=== PATIENT | male | born 1990 | race African-American/Black ===

== ENCOUNTER 2019-12-28 06:21 | Emergency (ER) | payer SELFPAY ==
[~2019-12-28] VITALS: Ht 175.3 cm; Wt 86.3 kg
[2019-12-28] MEDS ORDERED: IV NORMAL SALINE 1000ML BAG 1,000 ML IV ONE (07:15)
[2019-12-28] MEDS ORDERED: KETOROLAC 30 MG/ML VIAL. IVP ONE (07:15)
[2019-12-28] MEDS ORDERED: ONDANSETRON PF 4 MG/2 ML VIAL. IVP ONE (07:15)
[2019-12-28 07:18] LABS: BASO % 1 % (0-3); EOS # 0.4 x10^3/uL (0.0-0.7); EOS % 5 % (0-3); HEMATOCRIT 43.9 % (39.0-53.0); HEMOGLOBIN 14.7 g/dL (13.0-17.5); LYMPH # 1.9 x10^3/uL (1.0-4.8); LYMPH % 27 % (24-48); MEAN CORPUSCULAR HEMOGLOBIN 28 pg (25-35); MEAN CORPUSCULAR HGB CONC 34 g/dL (31-37); MEAN CORPUSCULAR VOLUME 84 fL (79-100); MONO # 1.1 x10^3/uL (0.0-1.1); MONO % 16 % (0-9); NEUT # 3.7 x10^3/uL (1.8-7.7); NEUT % 52 % (31-73); PLATELET COUNT 282 x10^3/uL (140-400); RED BLOOD COUNT 5.21 x10^6/uL (4.30-5.70); RED CELL DISTRIBUTION WIDTH 14.6 % (11.5-14.5); WHITE BLOOD COUNT 7.1 x10^3/uL (4.0-11.0)
[2019-12-28 07:20] LABS: BILIRUBIN,URINE NEGATIVE (NEG); CLARITY,URINE CLEAR; COLOR,URINE YELLOW; NITRITE,URINE NEGATIVE (NEG); PROTEIN,URINE NEGATIVE (NEG-TRACE); UROBILINOGEN,URINE 0.2 mg/dL (0.2 mg/dL)
[2019-12-28 07:22] LABS: CALCIUM 8.9 mg/dL (8.5-10.1); CREATININE 0.8 mg/dL (0.7-1.3); GFR 138.3; POTASSIUM 3.9 mmol/L (3.5-5.1)
[2019-12-28 07:27] LABS: ALBUMIN 3.6 g/dL (3.4-5.0); ALBUMIN/GLOBULIN RATIO 0.9 (1.0-1.7); TOTAL BILIRUBIN 0.4 mg/dL (0.2-1.0); TOTAL PROTEIN 7.5 g/dL (6.4-8.2)
--- NOTE | 2019-12-28 07:27 | PHYS DOC ---
Past Medical History Past Medical History: Kidney Stone Past Surgical History: No Surgical History Smoking Status: Never Smoker Alcohol Use: Rarely General Adult EDM: Chief Complaint: FLANK PAIN HPI: HPI: Patient is a 29 year old male who presented to ER today for evaluation of right flank pain started last night. Patient has history of kidney stone in the past, he feel that he had a kidney stone. Patient denies any blood in his urine, no cough, no fever, no chest pain. Patient denies any nausea vomiting at this time. Patient rates the pain at 7 out of 10, sharp and stabbing in nature. Review of Systems: Review of Systems: Constitutional: Denies fever or chills. [] Eyes: Denies change in visual acuity. [] HENT: Denies nasal congestion or sore throat. [] Respiratory: Denies cough or shortness of breath. [] Cardiovascular: Denies chest pain or edema. [] GI: Positive for right abdominal pain, no nausea, vomiting, bloody stools or diarrhea. [] : Denies dysuria. [] Musculoskeletal: Positive for right flank pain Integument: Denies rash. [] Neurologic: Denies headache, focal weakness or sensory changes. [] Endocrine: Denies polyuria or polydipsia. [] Lymphatic: Denies swollen glands. [] Psychiatric: Denies depression or anxiety. [] Heart Score: Risk Factors: Risk Factors: DM, Current or recent (<one month) smoker, HTN, HLP, family his tory of CAD, obesity. Risk Scores: Score 0 - 3: 2.5% MACE over next 6 weeks - Discharge Home Score 4 - 6: 20.3% MACE over next 6 weeks - Admit for Clinical Observation Score 7 - 10: 72.7% MACE over next 6 weeks - Early Invasive Strategies Current Medications: Current Medications Medications (Trade) Dose Ordered Sig/Venkat Start Time Stop Time Status Last Admin Dose Admin Ketorolac Tromethamine (Toradol 30mg Vial) 30 mg 1X ONCE 12/28/19 07:15 12/28/19 07:19 DC Ondansetron HCl (Zofran) 4 mg 1X ONCE 12/28/19 07:15 12/28/19 07:19 DC Sodium Chloride 1,000 ml @ 1,000 mls/hr 1X ONCE 12/28/19 07:15 9/3/20 08:14 Allergies: Allergies: Allergies Coded Allergies Type Severity Reaction Last Updated Verified No Known Drug Allergies 12/28/19 No Physical Exam: PE: Constitutional: Well developed, well nourished, no acute distress, non-toxic appearance. [] HENT: Normocephalic, atraumatic, bilateral external ears normal, oropharynx moist, no oral exudates, nose normal. [] Eyes: PERRLA, EOMI, conjunctiva normal, no discharge. [] Neck: Normal range of motion, no tenderness, supple, no stridor. [] Cardiovascular:Heart rate regular rhythm, no murmur [] Lungs & Thorax: Bilateral breath sounds clear to auscultation [] Abdomen: Bowel sounds normal, soft, no tenderness, no masses, no pulsatile masses. [] Skin: Warm, dry, no erythema, no rash. [] Back: No tenderness, right side CVA tenderness to palpation] Extremities: No tenderness, no cyanosis, no clubbing, ROM intact, no edema. [] Neurologic: Alert and oriented X 3, normal motor function, normal sensory function, no focal deficits noted. [] Psychologic: Affect normal, judgement normal, mood normal. [] Current Patient Data: Labs: Laboratory Tests Test 12/28/19 06:40 White Blood Count 7.1 x10^3/uL (4.0-11.0) Red Blood Count 5.21 x10^6/uL (4.30-5.70) Hemoglobin 14.7 g/dL (13.0-17.5) Hematocrit 43.9 % (39.0-53.0) Mean Corpuscular Volume 84 fL (79-100) Mean Corpuscular Hemoglobin 28 pg (25-35) Mean Corpuscular Hemoglobin Concent 34 g/dL (31-37) Red Cell Distribution Width 14.6 % (11.5-14.5) H Platelet Count 282 x10^3/uL (140-400) Neutrophils (%) (Auto) 52 % (31-73) Lymphocytes (%) (Auto) 27 % (24-48) Monocytes (%) (Auto) 16 % (0-9) H Eosinophils (%) (Auto) 5 % (0-3) H Basophils (%) (Auto) 1 % (0-3) Neutrophils # (Auto) 3.7 x10^3/uL (1.8-7.7) Lymphocytes # (Auto) 1.9 x10^3/uL (1.0-4.8) Monocytes # (Auto) 1.1 x10^3/uL (0.0-1.1) Eosinophils # (Auto) 0.4 x10^3/uL (0.0-0.7) Basophils # (Auto) 0.0 x10^3/uL (0.0-0.2) Sodium Level 138 mmol/L (136-145) Potassium Level 3.9 mmol/L (3.5-5.1) Chloride Level 106 mmol/L (98-107) Carbon Dioxide Level 26 mmol/L (21-32) Anion Gap 6 (6-14) Blood Urea Nitrogen 12 mg/dL (8-26) Creatinine 0.8 mg/dL (0.7-1.3) Estimated GFR (Cockcroft-Gault) 138.3 BUN/Creatinine Ratio 15 (6-20) Glucose Level 99 mg/dL (70-99) Calcium Level 8.9 mg/dL (8.5-10.1) Total Bilirubin Pending Aspartate Amino Transferase (AST) Pending Alanine Aminotransferase (ALT) Pending Alkaline Phosphatase Pending Total Protein Pending Albumin Pending Albumin/Globulin Ratio Pending Laboratory Tests 12/28/19 06:40 Laboratory Tests 12/28/19 06:40 Vital Signs: Vital Signs Date Time Temp Pulse Resp B/P (MAP) Pulse Ox O2 Delivery O2 Flow Rate FiO2 12/28/19 06:42 97.9 60 14 169/97 (121) 97 Room Air 97.9 EKG: EKG: [] Radiology/Procedures: Radiology/Procedures: [][facility] [address] [place] [address] IMAGING REPORT Signed PATIENT: CHARBEL RODARTE ACCOUNT: [id number] : 1990 LOCATION: ER AGE: 29 SEX: M EXAM STATUS: REG ER ORD. PHYSICIAN: MARYAN RAY DO REASON: right flank pain PROCEDURE: CT ABDOMEN PELVIS WO CONTRAST EXAM: CT Abdomen and Pelvis without IV contrast INDICATION: Reason: right flank pain / Spl. Instructions: / History: TECHNIQUE: Multi-detector row CT images were acquired from the lung bases through the abdomen and pelvis without the use of IV contrast. Sagittal and coronal images were acquired from the transaxial data. All CT scans performed at this facility utilize dose optimization techniques as appropriate to the exam, including the following: Automated exposure control and adjustment of the mA and/or KV according to patient size (this includes techniques or standardized protocols for targeted exams where dose is indication/reason for exam). ORAL CONTRAST: None COMPARISON: None FINDINGS: The absence of IV contrast limits evaluation of soft tissue pathology. LOWER CHEST: Unremarkable LIVER: Unremarkable BILIARY SYSTEM: Gallbladder is unremarkable. Bile ducts are not dilated. PANCREAS: Unremarkable SPLEEN: Unremarkable ADRENALS: Unremarkable KIDNEYS & URETERS: 6 mm stone in the proximal right ureter is associated with grade 1 hydronephrosis and proximal hydroureter. Multiple additional nonobstructing stones in the right kidney are evident. Mild right perirenal soft tissue stranding. No discrete fluid collection. BLADDER: Unremarkable REPRODUCTIVE ORGANS: Unremarkable GASTROINTESTINAL: The stomach, small bowel, and colon are unremarkable. The appendix is normal. MESENTERY/PERITONEUM/RETROPERITONEUM: Unremarkable VASCULAR: Unremarkable LYMPH NODES: No adenopathy OSSEOUS & SOFT TISSUES: Unremarkable IMPRESSION: Mild right obstructive uropathy from a 6 mm stone in the proximal right ureter near the UPJ.. Electronically signed by: Mady So MD (12/28/2019 8:04 AM) [id number] DICTATED and SIGNED BY: MADY SO MD DATE: 12/28/19 0804 Course & Med Decision Making: Course & Med Decision Making Pertinent Labs and Imaging studies reviewed. (See chart for details) Patient is a 29-year-old male who was evaluated in ER due to right flank pain, he was found a kidney stone. Patient will be discharged home, he will need follow-up with urology for further evaluation and treatment. Dragon Disclaimer: Dragac Disclaimer: This electronic medical record was generated, in whole or in part, using a voice recognition dictation system. Departure Departure Impression: Primary Impression: Kidney stone on right side Disposition: 01 HOME, SELF-CARE Condition: IMPROVED Referrals: NO PCP (PCP) Patient Instructions: Kidney Stones Additional Instructions: PLEASE CALL [facility] UROLOGY DEPARTMENT FOR FOLLOW UP THIS WEEK. The phone number is [phone] Scripts Tamsulosin Hcl (FLOMAX) 0.4 Mg Cap.er.24h 1 CAP PO DAILY, #10 CAP 11 Refills Prov: MARYAN RAY DO 12/28/19 Naproxen Sodium (ANAPROX DS) 550 Mg Tablet 1 TAB PO BID for 15 Days, #30 TAB 0 Refills Prov: MARYAN RAY DO 12/28/19 Hydrocodone/Apap 5-325 (NORCO 5-325 TABLET) 1 Each Tablet 1 TAB PO PRN Q6HRS PRN for PAIN, #20 TAB 0 Refills Prov: MARYAN RAY DO 12/28/19 Justicifation of Admission Dx: Justifications for Admission: Justification of Admission Dx: N/A MARYAN RAY DO Dec 28, 2019 07:27
[2019-12-28 07:36] LABS: BACTERIA,URINE 0 /HPF (0-FEW)
--- NOTE | 2019-12-28 08:06 | RAD ---
EXAM: CT Abdomen and Pelvis without IV contrast INDICATION: Reason: right flank pain / Spl. Instructions: / History: TECHNIQUE: Multi-detector row CT images were acquired from the lung bases through the abdomen and pelvis without the use of IV contrast. Sagittal and coronal images were acquired from the transaxial data. All CT scans performed at this facility utilize dose optimization techniques as appropriate to the exam, including the following: Automated exposure control and adjustment of the mA and/or KV according to patient size (this includes techniques or standardized protocols for targeted exams where dose is indication/reason for exam). ORAL CONTRAST: None COMPARISON: None FINDINGS: The absence of IV contrast limits evaluation of soft tissue pathology. LOWER CHEST: Unremarkable LIVER: Unremarkable BILIARY SYSTEM: Gallbladder is unremarkable. Bile ducts are not dilated. PANCREAS: Unremarkable SPLEEN: Unremarkable ADRENALS: Unremarkable KIDNEYS & URETERS: 6 mm stone in the proximal right ureter is associated with grade 1 hydronephrosis and proximal hydroureter. Multiple additional nonobstructing stones in the right kidney are evident. Mild right perirenal soft tissue stranding. No discrete fluid collection. BLADDER: Unremarkable REPRODUCTIVE ORGANS: Unremarkable GASTROINTESTINAL: The stomach, small bowel, and colon are unremarkable. The appendix is normal. MESENTERY/PERITONEUM/RETROPERITONEUM: Unremarkable VASCULAR: Unremarkable LYMPH NODES: No adenopathy OSSEOUS & SOFT TISSUES: Unremarkable IMPRESSION: Mild right obstructive uropathy from a 6 mm stone in the proximal right ureter near the UPJ.. Electronically signed by: Omayra So MD (12/28/2019 8:04 AM) [id number]
[2019-12-28] MEDS ORDERED: NAPR-682 PO (09:46)
[2019-12-28] MEDS ORDERED: TAMS0.4C97 PO (09:46)
[2019-12-28] MEDS ORDERED: HYDR-3164 PO (09:46)
[2019-12-28 09:50] VITALS: BP 138/82
== END 2019-12-28 10:07 | disposition home or self-care (01) ==
LOC: ER 06:21
DX: N13.2 Hydronephrosis with renal and ureteral calculous obstruction (principal); R10.9 Unspecified abdominal pain; Z87.442 Personal history of urinary calculi
CPT/HCPCS: 36415; 74176; 80053; 81001; 85025; 96361; 96374; 96375; 99284; J1885; J2405; J7030

== ENCOUNTER 2020-04-11 03:16 | Emergency (ER) | payer SELFPAY ==
[~2020-04-11] VITALS: Ht 175.3 cm; Wt 81.3 kg
[~2020-04-11 03:16] MED LIST: HYDR-3164 PO; NAPR-682 PO; TAMS0.4C97 PO
--- NOTE | 2020-04-11 04:14 | PHYS DOC ---
Past Medical History Past Medical History: Kidney Stone Past Surgical History: No Surgical History Smoking Status: Never Smoker Alcohol Use: Rarely General Adult EDM: Chief Complaint: FLANK PAIN HPI: HPI: 29-year-old male with history of nephrolithiasis who presents for the evaluation of colicky sharp right flank pain that began this evening. Associated with nausea and some darkened colored urine. No dysuria, fever, chills. Known history of nephrolithiasis most recently in December at which point he had a 6 mm right ureteral stone that n did not require acute urological intervention. No aggravating or alleviating factors. Review of Systems: Review of Systems: Gen: No fever, chills. CV: No CP, palpitations. Resp. No SOB, cough. GI: No vomiting, diarrhea. Reports right flank pain, nausea. : No dysuria, hematuria. Neuro: No RODRÍGUEZ, dizziness, weakness. MSK: No myalgia, arthralgia. Skin: No acute rash or lesion. Remainder of systems reviewed and negative unless otherwise specified. Heart Score: Risk Factors: Risk Factors: DM, Current or recent (<one month) smoker, HTN, HLP, family history of CAD, obesity. Risk Scores: Score 0 - 3: 2.5% MACE over next 6 weeks - Discharge Home Score 4 - 6: 20.3% MACE over next 6 weeks - Admit for Clinical Observation Score 7 - 10: 72.7% MACE over next 6 weeks - Early Invasive Strategies Allergies: Allergies: Allergies Coded Allergies Type Severity Reaction Last Updated Verified No Known Drug Allergies 12/28/19 No Physical Exam: PE: Gen: NAD. Well nourished. Head: NC/AT. Eyes: No scleral icterus. No conjunctival injection. ENT: MMM. Posterior OP clear. Neck: Supple. NT. CV: RRR. Peripheral pulses intact. Resp: CTAB. Abd: Soft. Nondistended. Mild right flank percussion tenderness. No anterior abdominal tenderness. No rebound, guarding, rigidity. MSK: No peripheral cyanosis. No edema. Neuro: Awake and alert. Skin. Warm. Dry. Psych: Appropriate mood & affect. Current Patient Data: Labs: Laboratory Tests Test 04/11/20 03:40 04/11/20 04:00 Urine Collection Type Unknown Urine Color Soni Urine Clarity Clear Urine pH 7.5 (<5.0-8.0) Urine Specific Hubbard >=1.030 (1.000-1.030) Urine Protein 30 mg/dL (NEG-TRACE) Urine Glucose (UA) Negative mg/dL (NEG) Urine Ketones (Stick) Trace mg/dL (NEG) Urine Blood Negative (NEG) Urine Nitrite Negative (NEG) Urine Bilirubin Small (NEG) Urine Urobilinogen Dipstick 2.0 mg/dL (0.2 mg/dL) Urine Leukocyte Esterase Small (NEG) Urine RBC 1-2 /HPF (0-2) Urine WBC 1-4 /HPF (0-4) Urine Squamous Epithelial Cells Occ /LPF Urine Bacteria 0 /HPF (0-FEW) Urine Mucus Slight /LPF White Blood Count 8.2 x10^3/uL (4.0-11.0) Red Blood Count 4.91 x10^6/uL (4.30-5.70) Hemoglobin 13.9 g/dL (13.0-17.5) Hematocrit 40.5 % (39.0-53.0) Mean Corpuscular Volume 83 fL (79-100) Mean Corpuscular Hemoglobin 28 pg (25-35) Mean Corpuscular Hemoglobin Concent 34 g/dL (31-37) Red Cell Distribution Width 13.9 % (11.5-14.5) Platelet Count 397 x10^3/uL (140-400) Neutrophils (%) (Auto) 74 % (31-73) Lymphocytes (%) (Auto) 12 % (24-48) Monocytes (%) (Auto) 12 % (0-9) Eosinophils (%) (Auto) 1 % (0-3) Basophils (%) (Auto) 0 % (0-3) Neutrophils # (Auto) 6.1 x10^3/uL (1.8-7.7) Lymphocytes # (Auto) 1.0 x10^3/uL (1.0-4.8) Monocytes # (Auto) 1.0 x10^3/uL (0.0-1.1) Eosinophils # (Auto) 0.1 x10^3/uL (0.0-0.7) Basophils # (Auto) 0.0 x10^3/uL (0.0-0.2) Sodium Level 135 mmol/L (136-145) Chloride Level 101 mmol/L (98-107) Carbon Dioxide Level 25 mmol/L (21-32) Anion Gap 9 (6-14) Blood Urea Nitrogen 12 mg/dL (8-26) Estimated GFR (Cockcroft-Gault) 86.6 BUN/Creatinine Ratio 10 (6-20) Glucose Level 109 mg/dL (70-99) Calcium Level 9.2 mg/dL (8.5-10.1) Total Bilirubin 0.8 mg/dL (0.2-1.0) Aspartate Amino Transf (AST/SGOT) 18 U/L (15-37) Alkaline Phosphatase 70 U/L (46-116) Total Protein 7.6 g/dL (6.4-8.2) Albumin 3.8 g/dL (3.4-5.0) Albumin/Globulin Ratio 1.0 (1.0-1.7) EKG: EKG: [] Course & Med Decision Making: Course & Med Decision Making Pertinent Labs and Imaging studies reviewed. (See chart for details) In summary, 29-year-old male with a history of nephrolithiasis most recently in December identified on CT imaging of the abdomen and pelvis, who presents for the evaluation of recurrent right-sided flank pain and nausea. Mild right flank percussion tenderness. No anterior abdominal tenderness. Hemodynamically stable. Lab work is largely unremarkable. Normal renal function. Urinalysis with trace RBCs, no evidence of UTI. He received multiple medications for presumed recurrent ureterolithiasis with efficacy. The patient is now pain- free. Given his known history of nephrolithiasis with prior imaging a couple months ago, with current presentation similar to prior episode, I would not obtain repeat CT imaging at this time. The patient will be treated empirically for ureterolithiasis. Outpatient urology follow-up. Return precautions given. Salvador Disclaimer: Salvador Disclaimer: This electronic medical record was generated, in whole or in part, using a voice recognition dictation system. Departure Departure Impression: Primary Impression: Right flank pain Additional Impression: Renal colic on right side Disposition: 01 DC HOME SELF CARE/HOMELESS Condition: STABLE Referrals: NO PCP (PCP) Patient Instructions: Ureteral Colic, Vrob-[id number] Additional Instructions: Please follow up with a urologist regarding your suspected kidney stones. One option would be [facility]. Call [phone]. You may also follow up with a urologist of your choice. Take the medications as directed. Also take motrin/ibuprofen 600 mg every 8 hours for baseline pain control. Return to the ED if you develop new or worsening symptoms. Scripts Tamsulosin Hcl (FLOMAX) 0.4 Mg Cap.er.24h 1 CAP PO DAILY, #14 CAP 0 Refills Prov: LE,CITLALLI H DO 04/11/20 Ondansetron (ONDANSETRON ODT) 4 Mg Tab.rapdis 1 TAB PO PRN Q6-8HRS, #16 TAB Prov: LE,CITLALLI H DO 04/11/20 Hydrocodone/Apap 5-325 (NORCO 5-325 TABLET) 1 Each Tablet 1 TAB PO PRN Q8HRS PRN for PAIN, #15 TAB 0 Refills Prov: LE,CITLALLI H DO 04/11/20 LE,CITLALLI H DO Apr 11, 2020 04:14
[2020-04-11] MEDS ORDERED: MORPHINE SULFATE 4 MG/ML VIAL. IV ONE (04:30)
[2020-04-11] MEDS ORDERED: KETOROLAC 15 MG/ML VIAL. IVP ONE (04:30)
[2020-04-11] MEDS ORDERED: ONDANSETRON PF 4 MG/2 ML VIAL. IVP ONE (04:30)
[2020-04-11] MEDS ORDERED: TAMSULOSIN 0.4 MG CAP.ER.24H. PO ONE (04:30)
[2020-04-11] MEDS ORDERED: IV NORMAL SALINE 1000ML BAG 1,000 ML IV ONE (04:30)
[2020-04-11 04:32] LABS: BASO % 0 % (0-3); EOS # 0.1 x10^3/uL (0.0-0.7); EOS % 1 % (0-3); HEMATOCRIT 40.5 % (39.0-53.0); HEMOGLOBIN 13.9 g/dL (13.0-17.5); LYMPH % 12 % (24-48); MEAN CORPUSCULAR HEMOGLOBIN 28 pg (25-35); MEAN CORPUSCULAR HGB CONC 34 g/dL (31-37); MEAN CORPUSCULAR VOLUME 83 fL (79-100); MONO % 12 % (0-9); NEUT # 6.1 x10^3/uL (1.8-7.7); NEUT % 74 % (31-73); PLATELET COUNT 397 x10^3/uL (140-400); RED BLOOD COUNT 4.91 x10^6/uL (4.30-5.70); RED CELL DISTRIBUTION WIDTH 13.9 % (11.5-14.5); WHITE BLOOD COUNT 8.2 x10^3/uL (4.0-11.0)
[2020-04-11 04:37] LABS: BILIRUBIN,URINE SMALL (NEG); CLARITY,URINE CLEAR; COLOR,URINE AMBER; NITRITE,URINE NEGATIVE (NEG); PH,URINE 7.5 (<5.0-8.0); PROTEIN,URINE 30 mg/dL (NEG-TRACE)
[2020-04-11 04:43] LABS: CALCIUM 9.2 mg/dL (8.5-10.1); CREATININE 1.2 mg/dL (0.7-1.3); GFR 86.6; POTASSIUM 3.7 mmol/L (3.5-5.1)
[2020-04-11 04:46] LABS: ALBUMIN 3.8 g/dL (3.4-5.0); MAGNESIUM 1.7 mg/dL (1.8-2.4); TOTAL BILIRUBIN 0.8 mg/dL (0.2-1.0); TOTAL PROTEIN 7.6 g/dL (6.4-8.2)
[2020-04-11 04:58] LABS: BACTERIA,URINE 0 /HPF (0-FEW)
[2020-04-11] MEDS ORDERED: ONDA4TAB12 PO (05:20)
[2020-04-11] MEDS ORDERED: TAMS0.4C97 PO (05:20)
[2020-04-11] MEDS ORDERED: HYDR-3164 PO (05:20)
[2020-04-11 05:27] VITALS: BP 134/86
== END 2020-04-11 05:27 | disposition home or self-care (01) ==
LOC: ER 03:16
DX: N13.2 Hydronephrosis with renal and ureteral calculous obstruction (principal); R10.9 Unspecified abdominal pain; R11.0 Nausea; Z87.442 Personal history of urinary calculi
CPT/HCPCS: 36415; 80053; 81001; 83735; 85025; 96361; 96374; 96375; 99284; J1885; J2270; J2405; J7030

== ENCOUNTER 2020-11-07 05:08 | Emergency (ER) | payer SELFPAY ==
[~2020-11-07] VITALS: Ht 175.3 cm; Wt 81.8 kg
[~2020-11-07 05:08] MED LIST changes: +ONDA4TAB12 PO
[2020-11-07 05:45] LABS: CALCIUM 9.2 mg/dL (8.5-10.1); CREATININE 1.3 mg/dL (0.7-1.3); GFR 78.4; POTASSIUM 3.7 mmol/L (3.5-5.1)
[2020-11-07 05:49] LABS: BASO % 0 % (0-3); EOS # 0.1 x10^3/uL (0.0-0.7); EOS % 2 % (0-3); HEMATOCRIT 43.3 % (39.0-53.0); HEMOGLOBIN 14.5 g/dL (13.0-17.5); LYMPH # 1.5 x10^3/uL (1.0-4.8); LYMPH % 19 % (24-48); MEAN CORPUSCULAR HEMOGLOBIN 29 pg (25-35); MEAN CORPUSCULAR HGB CONC 34 g/dL (31-37); MEAN CORPUSCULAR VOLUME 85 fL (79-100); MONO # 1.1 x10^3/uL (0.0-1.1); MONO % 14 % (0-9); NEUT % 65 % (31-73); PLATELET COUNT 267 x10^3/uL (140-400); RED BLOOD COUNT 5.07 x10^6/uL (4.30-5.70); RED CELL DISTRIBUTION WIDTH 14.4 % (11.5-14.5); WHITE BLOOD COUNT 7.8 x10^3/uL (4.0-11.0)
--- NOTE | 2020-11-07 05:50 | PHYS DOC ---
Past Medical History Past Medical History: Kidney Stone Past Surgical History: No Surgical History Smoking Status: Never Smoker Alcohol Use: None General Adult EDM: Chief Complaint: MULTIPLE COMPLAINTS HPI: HPI: Patient is a 30 year old male past medical history of kidney stones presents with a chief complaint of right flank pain. Patient states right flank pain started around 0100 hours. Patient's pain is located in the right flank it does not radiate. Patient has associated nausea and has vomited. Patient denies any fevers chills chest pain or shortness of breath. Has taken norco with minimal improvement. Patient has known history of 6mm stone left kidney. Has not followed up with Urology. Review of Systems: Review of Systems: Review of systems: Constitutional symptoms- No fever, no chills. Eyes- No Discharge, No Visual Loss Respiratory symptoms- No shortness of breath, No wheezing, No Dyspnea on Exertion Cardiovascular Systems; No chest pain, No Palpitations, No syncope Gastrointestinal symptoms: NO abdominal pain,Positive nausea, Positive vomiting or diarrhea. Genitourinary symptoms: No dysuria. Positive flank pain Musculoskeletal symptoms: No back pain No extremity pain. NEUROLOGICAL Symptoms: No headache, no generalized weakness; No focal Weakness Skin: No rash. Heart Score: C/O Chest Pain: N/A Risk Factors: Risk Factors: DM, Current or recent (<one month) smoker, HTN, HLP, family history of CAD, obesity. Risk Scores: Score 0 - 3: 2.5% MACE over next 6 weeks - Discharge Home Score 4 - 6: 20.3% MACE over next 6 weeks - Admit for Clinical Observation Score 7 - 10: 72.7% MACE over next 6 weeks - Early Invasive Strategies Current Medications: Current Medications Medications (Trade) Dose Ordered Sig/[facility] Start Time Stop Time Status Last Admin Dose Admin Ketorolac Tromethamine (Toradol 30mg Vial) 30 mg 1X ONCE 11/07/20 06:00 11/07/20 06:01 11/07/20 05:44 30 MG Sodium Chloride 1,000 ml @ 1,000 mls/hr 1X ONCE 11/07/20 06:00 11/07/20 06:59 11/07/20 05:44 1,000 MLS/HR Allergies: Allergies: Allergies Coded Allergies Type Severity Reaction Last Updated Verified No Known Drug Allergies 12/28/19 No Physical Exam: PE: General: alert, no acute distress. Skin: warm, dry and intact. HENT: bilateral external ears normal, oropharynx moist, nose normal. Head:: Normocephalic, atraumatic. Neck: Trachea midline. Eyes: EOMI, Normal conjunctiva, No drainage CARDIOVASCULAR: Regular rate and rhythm RESPIRATORY: No respiratory distress Back: Full range of motion. Skin: Warm, dry, no erythema, no rash. MUSCULOSKELETAL: Full range of motion of bilateral upper and lower extremities. GASTROINTESTINAL: Abdomen soft without rebound or guarding. NEUROLOGICAL: Alert and noted to person, place and time. No neurological deficits observed Psychiatric: Cooperative. Normal judgment Current Patient Data: Vital Signs: Vital Signs Date Time Temp Pulse Resp B/P (MAP) Pulse Ox O2 Delivery O2 Flow Rate FiO2 11/07/20 05:16 98.9 60 18 181/97 100 Room Air 98.9 EKG: EKG: [] Radiology/Procedures: Radiology/Procedures: [] Impression: FINDINGS: 3 mm nodule at the left lung base is again seen. Abdominal aorta is not aneurysmal. No intrahepatic bile duct dilation. Limited assessment of pancreas without contrast. Spleen is unremarkable. Right-sided moderate hydronephrosis and hydroureter with perinephric edema and 6 mm right mid ureter stone. Urinary bladder is partially distended. Appendix is again prominent in size but no adjacent inflammatory changes therefore likely the patient's baseline appearance. No dilated loops of bowel to suggest obstruction. There is some degenerative changes the spine with disc protrusions IMPRESSION: * Right-sided hydronephrosis and hydroureter with right mid ureter stone. Course & Med Decision Making: Course & Med Decision Making Pertinent Labs and Imaging studies reviewed. (See chart for details) [] Patient was evaluated for chief complaint. Work-up consisted of laboratory analysis and radiologic imaging. Toradol and Zofran and IV fluids. Pain with mild improvement post treatment. CT abdomen pelvis-6 mm stone mid ureter hydronephrosis hydroureter. Morphine and flomax ordered. Patient adivsed to continue taking norco. WIll rx ultram, flomax, zofran. Patient given referral to urology-[facility] Salvador Disclaimer: Salvador Disclaimer: This electronic medical record was generated, in whole or in part, using a voice recognition dictation system. Departure Departure Impression: Primary Impression: Kidney stone Disposition: HOME / SELF CARE / HOMELESS Condition: STABLE Referrals: NO PCP (PCP) Patient Instructions: Flank Pain, Kidney Stones Scripts Tamsulosin Hcl (FLOMAX) 0.4 Mg Cap.er.24h 0.4 MG PO DAILY for 10 Days, #20 TAB Prov: GHULAM WEBSTER DO 11/07/20 Ondansetron Hcl (ZOFRAN) 4 Mg Tablet 1 TAB PO Q6HRS, #20 TAB Prov: GHULAM WEBSTER DO 11/07/20 Tramadol Hcl (ULTRAM) 50 Mg Tablet 1 TAB PO PRN Q6HRS PRN for pain MDD 4 Tablet(s) for 7 Days, #28 TAB 0 Refills Prov: GHULAM WEBSTER DO 11/07/20 GHULAM WEBSTER DO Nov 07, 2020 05:49
--- NOTE | 2020-11-07 05:52 | RAD ---
INDICATION: Reason: flank pain / Spl. Instructions: / History: . COMPARISON: December 28, 2019 TECHNIQUE: Axial CT images obtained through the abdomen and pelvis without contrast. One or more of the following individualized dose reduction techniques were utilized for this examinat ion: 1. Automated exposure control; 2. Adjustment of the mA and/or kV according to patient size; 3 . Use of iterative reconstruction technique. FINDINGS: 3 mm nodule at the left lung base is again seen. Abdominal aorta is not aneurysmal. No intrahepatic bile duct dilation. Limited assessment of pancreas without contrast. Spleen is unremarkable. Right-sided moderate hydronephrosis and hydroureter with perinephric edema and 6 mm right mid ureter stone. Urinary bladder is partially distended. Appendix is again prominent in size but no adjacent inflammatory changes therefore likely the patient 's baseline appearance. No dilated loops of bowel to suggest obstruction. There is some degenerative changes the spine with disc protrusions IMPRESSION: * Right-sided hydronephrosis and hydroureter with right mid ureter stone. Electronically signed by: Benny De Luna MD (11/07/2020 5:50 AM) [id number]
[2020-11-07 05:54] LABS: ALBUMIN 4.1 g/dL (3.4-5.0); ALBUMIN/GLOBULIN RATIO 1.2 (1.0-1.7); TOTAL BILIRUBIN 0.5 mg/dL (0.2-1.0); TOTAL PROTEIN 7.6 g/dL (6.4-8.2)
[2020-11-07] MEDS ORDERED: KETOROLAC 30 MG/ML VIAL. IVP ONE (06:00)
[2020-11-07] MEDS ORDERED: IV NORMAL SALINE 1000ML BAG 1,000 ML IV ONE (06:00)
[2020-11-07] MEDS ORDERED: ONDA4TAB7 PO (06:14)
[2020-11-07] MEDS ORDERED: TAMS0.4C97 PO (06:14)
[2020-11-07] MEDS ORDERED: TRAM-48 PO (06:14)
[2020-11-07 06:15] VITALS: BP 163/84
[2020-11-07] MEDS ORDERED: MORPHINE SULFATE 2 MG/ML INJ. IV ONE (06:30)
[2020-11-07] MEDS ORDERED: TAMSULOSIN 0.4 MG CAP.ER.24H. PO ONE (07:00)
== END 2020-11-07 06:35 | disposition home or self-care (01) ==
LOC: ER 05:08
DX: N13.2 Hydronephrosis with renal and ureteral calculous obstruction (principal); Z87.442 Personal history of urinary calculi
CPT/HCPCS: 36415; 74176; 80053; 85025; 96361; 96374; 96375; 99284; J1885; J2270; J7030